=== PATIENT | male | born 1990 | race Caucasian/White ===

== ENCOUNTER 2025-05-18 12:34 | Emergency (ER) | payer BC, SELFPAY ==
[2025-05-18 12:48] VITALS: BP 146/93; PULSE 79; TEMP 36.5; O2SAT 99; BMI 34.0
--- NOTE | 2025-05-18 13:10 | CT_ITS ---
The [address] [address] Patient Name: MATILDE LYLE MRN: [id number] date: 1990 Sex: M Assigned Patient Location: ER Current Patient Location: ER Accession/Order Number: [id number] Exam Date: 05/18/2025 13:45 Report Date: 05/18/2025 14:16 At the request of: ALLISON FITZGERALD Procedure: CT abdomen pelvis w con CT ABDOMEN AND PELVIS WITH INTRAVENOUS CONTRAST: CLINICAL HISTORY: llq pain and back pain / COMPARISON: None TECHNIQUE: Spiral images were obtained through the abdomen and pelvis following the administration of intravenous contrast. This CT exam was performed using one or more following dose reduction techniques: Automated exposure control, adjustment of the mA and/or kV according to patient size, or use of iterative reconstruction technique. FINDINGS: Lung Bases: [No acute findings.] Organs:Hepatic steatosis. Gallbladder spleen pancreas adrenal glands kidneys and aorta all appear unremarkable.[ GI: Stomach is grossly unremarkable. Small bowel appears nondilated. Appendix is normal. No acute colonic abnormality.[ Pelvis:[Urinary bladder and prostate gland appear unremarkable.] Peritoneum/Retroperitoneum:No free air or free fluid or lymphadenopathy.[ Abd wall/Bones:Abdominal wall demonstrates no acute findings. Osseous structures demonstrate no acute findings.[ CT/CT abdomen pelvis w con IMPRESSION: No acute process. Hepatic steatosis. Impression dictated by: Myke Murillo Jr., D.O. 05/18/2025 2:16 PM Dictation Location: [place] [address] Electronically authenticated by: [id number] Y Date: 05/18/2025 14:16
--- NOTE | 2025-05-18 13:12 | ED.GENADUL1 ---
HPI HPI - General Adult General Chief complaint: Abdominal Pain Stated complaint: ABDOMINAL & BACK PAIN Time Seen by Provider: 05/18/25 13:02 Source: patient Mode of arrival: walk-in Limitations: no limitations History of Present Illness HPI narrative: Patient presents with 5-day history of worsening abdominal pain he indicates mid upper abdomen. Patient does have nausea. He states he goes through to his back. Food worsens his symptoms. Patient denies fever, chills, sore throat, vomiting, sore throat, cough, chest pain, urinary bleeding, rectal bleeding, coughing up blood. Patient denies any history of diverticulosis, diverticulitis. Patient states that prior to this week's episode he has had intermittent abdominal pain. Symptoms mild to moderate in severity food and palpation worsen symptoms nothing improves his symptoms. MD complaint: Abdominal pain Onset (ago): week(s) (1) Location: Reports abdomen Radiation: Reports back Relieving factors: Reports none Exacerbating factors: Reports eating Treatments prior to arrival: Reports none Related Data Home Medications ?Medication ?Instructions ?Recorded ?Confirmed esomeprazole magnesium 20 mg 20 mg PO DAILY 05/18/25 05/18/25 capsule,delayed release (Nexium 24HR) Previous Rx's ?Medication ?Instructions ?Recorded dicyclomine 10 mg capsule 10 mg PO QID PRN abdominal pain 05/18/25 #14 caps ibuprofen 600 mg tablet 600 mg PO Q8H PRN pain #14 tabs 05/18/25 ondansetron 4 mg disintegrating 4 mg PO Q8H PRN nausea and 05/18/25 tablet vomiting 4 days #14 tabs Allergies Allergy/AdvReac Type Severity Reaction Status Date / Time No Known Drug Allergies Allergy Verified 05/18/25 12:48 Opioid HPI Opioid Management Most Recent Opioid Data: Last Pain Scale 4 Today, 12:58 Review of Systems ROS Status of ROS 10 or more systems reviewed and unremarkable except as noted in history and below Constitutional Denies: fever or chills Ears, nose, mouth, and throat Denies: throat pain or ear pain Cardiovascular Denies: chest pain Respiratory Denies: shortness of breath or cough Gastrointestinal Reports: abdominal pain and nausea; Denies: vomiting or constipation Genitourinary Denies: painful urination or blood in urine Musculoskeletal Reports: back pain; Denies: neck pain Integumentary/Breast Denies: rash Neurological Reports: headache Psychiatric Denies: anxiety Endocrine Denies: excessive urination Hematologic/Lymphatic Denies: easy bruising Allergic/Immunologic Denies: hives PFSH PFSH Social History Little interest or pleasure in doing things: not at all Feeling down, depressed, or hopeless: not at all Exam Constitutional Vital Signs, click to edit/add: Last Vital Signs Temp 97.7 F 05/18/25 12:48 Pulse 79 05/18/25 12:48 Resp 16 05/18/25 12:48 BP 146/93 H 05/18/25 12:48 Pulse Ox 99 05/18/25 12:48 O2 Del Method Room Air 05/18/25 12:48 Documenting provider has reviewed patient's vital signs: yes Common normals: no apparent distress, oriented x3, healthy appearing, alert and well nourished Exam limitations: no altered mental status General appearance: cooperative Orientation/consciousness: Yes awake HENMT Common normals: normocephalic and external nose normal Head and scalp: normal to inspection Face and sinus: normal facial exam Nose: external nose normal General ear: hearing not grossly impaired External ear: external ears normal External auditory canal: EACs normal Tympanic membrane: TMs normal bilaterally Throat: posterior oropharynx normal Eye Common normals: PERRL, EOMs intact bilaterally and conjunctivae normal General eye: normal appearance of both eyes Neck & C-Spine Common normals: full ROM and supple General: normal visual inspection and trachea midline Chest Common normals: inspection of chest normal Chest: symmetrical chest wall rise; inspection of the chest normal, no localized rib tenderness with anteroposterior compression and no tenderness Respiratory Common normals: normal respiratory effort, no retractions, no use of accessory muscles and clear to auscultation bilaterally Effort & inspection: able to speak in complete sentences Cardio Common normals: regular rate, regular rhythm, S1 normal heart sound, S2 normal heart sound and peripheral pulses 2+ throughout GI Common normals: Normal to inspection, nondistended, normoactive bowel sounds present and soft to palpation; tender Auscultation: normoactive bowel sounds Palpation: soft and tender Details: LLQ; no guarding and not rigid Back & Pelvis Common normals: no CVA tenderness, thoracic and lumbar spine normal to inspection, no thoracic nor lumbar tenderness and thoraco-lumbar ROM normal General back: no CVA tenderness Extremity Common normals: full ROM and no pedal edema (Slight bilateral lower extremity edema) General: normal exam except as noted Neuro Common normals: oriented x3 and moves all extremities Psych Common normals: mental status grossly normal, thought process normal, cooperative, affect normal and speech normal Course Reevaluation(s) Reevaluation #1: Patient reevaluated 14 hours. Patient does not want any pain medicine or nausea medicine. We reviewed labs including glucose and slight elevation in ALT negative urine plan for medications for home patient has appointment with his physician on Thursday. We await CT scan Vital Signs Vital signs: Vital Signs Temperature 97.7 F 05/18/25 12:48 Pulse Rate 79 05/18/25 12:48 Respiratory Rate 16 05/18/25 12:48 Blood Pressure 146/93 H 05/18/25 12:48 Pulse Oximetry 99 05/18/25 12:48 Oxygen Delivery Method Room Air 05/18/25 12:48 Temperature 97.7 F 05/18/25 12:48 Pulse Rate 79 05/18/25 12:48 Respiratory Rate 16 05/18/25 12:48 Blood Pressure 146/93 H 05/18/25 12:48 Pulse Oximetry 99 05/18/25 12:48 Oxygen Delivery Method Room Air 05/18/25 12:48 Medical Decision Making MDM Narrative Medical decision making narrative: Patient has worsening abdominal pain back pain primarily left lower quadrant CBC CMP lipase urinalysis IV contrasted CT abdomen pelvis for possible diverticulitis. Will add 0.9% since patient did have dry oromucosa denies any diarrhea notes last bowel movement was today at noon prior to arrival denies any urinary bleeding rectally denies any history of diverticulosis diverticulitis kidney stone. Discussed plan of care with patient at length he agrees plan of care.. Discussed with patient including plan of care he is agreeable to plan of care. Negative CT for acute process we did discuss hepatic steatosis with slight elevation of LFTs he is going to follow-up with his primary care physician. Will add ibuprofen 600 every 8 hours #14 Zofran 4 mg every 8 hours as needed for nausea vomiting and Bentyl 10 mg. Sent to local pharmacy. t Differential Diagnosis Differential Diagnosis: not limited to diverticulosis diverticulitis kidney stone UTI colitis Lab Data Lab results reviewed: Yes I reviewed the patient's lab results Labs: Lab Results 10/16/25 10/16/25 Range/Units 13:10 13:18 WBC 8.6 (4.0-11.0) 10^3/uL RBC 5.11 (4.70-6.10) 10^6/uL Hgb 15.7 (14.0-18.0) g/dL Hct 44.2 (42.0-54.0) % MCV 86.5 (80.0-94.0) fL MCH 30.7 (25.9-34.0) pg MCHC 35.5 H (29.9-35.2) g/dL RDW 12.1 (11.0-15.0) % Plt Count 236 (150-450) 10^3/uL MPV 9.7 (9.5-13.5) fL Neut % (Auto) 68.3 (43.0-75.0) % Lymph % (Auto) 20.6 (20.5-60.0) % [place] % (Auto) 8.7 (1.7-12.0) % Eos % (Auto) 1.4 (0.9-7.0) % Baso % (Auto) 0.7 (0.2-2.0) % Neut # (Auto) 5.9 (1.4-6.5) 10^3/uL Lymph # (Auto) 1.8 (1.2-3.8) 10^3/uL [place] # (Auto) 0.8 (0.3-0.8) 10^3/uL Eos # (Auto) 0.1 (0.0-0.7) 10^3/uL Baso # (Auto) 0.1 (0.0-0.1) 10^3/uL Abs Immat Gran (auto) 0.03 (0.00-0.03) 10^3/uL Imm/Tot Granulo (auto) 0.3 (0.0-0.5) % Sodium 141 (136-145) mmol/L Potassium 4.1 (3.5-5.1) mmol/L Chloride 104 (98-107) mmol/L Carbon Dioxide 29.8 (21.0-32.0) mmol/L Anion Gap 11.3 BUN 13.0 (7.0-18.0) mg/dL Creatinine 1.07 (0.70-1.30) mg/dL Est GFR ( Amer) >60 (>=60 mL/min/1.73m^2) Est GFR (Non-Af Amer) >60 (>=60 mL/min/1.73m^2) BUN/Creatinine Ratio 12.1 Glucose 115 H (74-106) mg/dL Calcium 9.4 (8.5-10.1) mg/dL Magnesium 2.1 (1.8-2.4) mg/dL Total Bilirubin 0.7 (0.2-1.0) mg/dL AST 34 (15-37) U/L ALT 97 H (16-63) U/L Alkaline Phosphatase 74 (46-116) U/L Total Protein 7.9 (6.4-8.2) g/dL Albumin 4.6 (3.4-5.0) g/dL Globulin 3.3 g/dL Albumin/Globulin Ratio 1.4 Lipase 37.0 (16.0-77.0) U/L Urine Color Lt. yellow (YELLOW) Urine Clarity Clear (CLEAR) Urine pH 7.0 (5.0-9.0) Ur Specific [place] 1.010 (1.005-1.025) Urine Protein Negative (NEG/TRACE) mg/dL Urine Glucose (UA) Negative (NEGATIVE) mg/dL Urine Ketones Negative (NEGATIVE) mg/dL Urine Occult Blood Negative (NEGATIVE) Urine Nitrite Negative (NEGATIVE) Urine Bilirubin Negative (NEGATIVE) Urine Urobilinogen 0.2 (0.2-1.0) EU/dL Ur Leukocyte Esterase Negative (NEGATIVE) Discharge Plan Discharge Stand Alone Forms: Work/School Release Chief Complaint: Abdominal Pain Clinical Impression: Nausea Abdominal pain Qualifiers: Abdominal location: left lower quadrant Qualified Code(s): R10.32 - Left lower quadrant pain Back pain Qualifiers: Back pain location: low back pain Chronicity: acute Back pain laterality: unspecified Sciatica presence: unspecified whether sciatica present Qualified Code(s): M54.50 - Low back pain, unspecified Patient Disposition: Home, Self-Care Time of Disposition Decision: 14:52 Condition: Good Mode of Transportation: Private Vehicle Prescriptions / Home Meds: New ondansetron 4 mg tablet,disintegrating 4 mg PO Q8H PRN (Reason: nausea and vomiting) 4 Days Qty: 14 0RF dicyclomine 10 mg capsule 10 mg PO QID PRN (Reason: abdominal pain) Qty: 14 0RF ibuprofen 600 mg tablet 600 mg PO Q8H PRN (Reason: pain) Qty: 14 0RF No Action esomeprazole magnesium [Nexium 24HR] 20 mg capsule,delayed release(DR/EC) 20 mg PO DAILY Print Language: Croatian Instructions: Acute Nausea and Vomiting (DC), Abdominal Pain (ED) Additional Instructions: Clear liquid diet for 24 hours including water, Jell-O, popsicles, clear broth, Gatorade. Follow-up with primary care. Return to ER if any symptoms worsen or new symptom develop. Referrals: [facility] [Other] - As needed MEME ALBA DO [Primary Care Provider, Family Practice] - 1 week
--- OUTSIDE RECORDS SUMMARY | 2025-05-18 13:12 | XMS_ITS | Clinical Summary ---
Author Organization [facility] tem Address [id number] [place] [address] Care Team Providers Care Ui Application Developer Name Role Phone Unavailable Primary Care Provider Unavailabl e Social History Tobacco Use Types Packs/Day Years Used Date Smoking Tobacco: Never Assessed Childcare Answer Date Recorded Childcare Unknown 01/12/2019 Employment Answer Date Recorded Employment Unknown 01/12/2019 Sex and Gender Information Value Date Recorded Sex Assigned at Not on file Legal Sex Male 11:40 AM EDT Gender Identity Not on file Sexual Orientation Not on file Plan of Treatment Not on file Medical Devices Not on file
[2025-05-18 13:29] LABS: Hematocrit 44.2 % (42.0-54.0); Hemoglobin 15.7 g/dL (14.0-18.0); Immature Granulocytes Abs Auto 0.03 10^3/uL (0.00-0.03); Immature Granulocytes Pct Auto 0.3 % (0.0-0.5); Lymphocytes Absolute Auto 1.8 10^3/uL (1.2-3.8); Mean Corpuscular HGB Conc 35.5 g/dL (29.9-35.2); Mean Corpuscular Hemoglobin 30.7 pg (25.9-34.0); Mean Corpuscular Volume 86.5 fL (80.0-94.0); Platelet Count 236 10^3/uL (150-450); Red Blood Count 5.11 10^6/uL (4.70-6.10); White Blood Count 8.6 10^3/uL (4.0-11.0)
[2025-05-18 13:46] LABS: Alanine Aminotransferase 97 U/L (16-63); Albumin Globulin Ratio 1.4; Albumin Level 4.6 g/dL (3.4-5.0); Alkaline Phosphatase 74 U/L (46-116); Anion Gap 11.3; Aspartate Amino Transferase 34 U/L (15-37); Blood Urea Nitrogen 13.0 mg/dL (7.0-18.0); Calcium 9.4 mg/dL (8.5-10.1); Carbon Dioxide 29.8 mmol/L (21.0-32.0); Chloride 104 mmol/L (98-107); Estimated GFR (African America >60 (>=60 mL/min/1.73m^2); Estimated GFR (Non-African Ame >60 (>=60 mL/min/1.73m^2); Globulin 3.3 g/dL; Glucose 115 mg/dL (74-106); Lipase 37.0 U/L (16.0-77.0); Magnesium 2.1 mg/dL (1.8-2.4); Potassium 4.1 mmol/L (3.5-5.1); Sodium 141 mmol/L (136-145); Total Protein 7.9 g/dL (6.4-8.2)
[2025-05-18] MEDS: 0.9 % SODIUM CHLORIDE 500 ML 1000 ML IV (13:53)
[2025-05-18 14:00] LABS: Glucose Urine UA NEGATIVE (NEGATIVE)
== END 2025-05-18 15:03 | disposition home or self-care (01) ==
PROVIDERS: Physician Assistant; Emergency Provider Emergency Medicine; PCP Internal Medicine
DX: R10.32 Left lower quadrant pain (principal); R11.0 Nausea; M54.50 Low back pain, unspecified
CPT/HCPCS: 36415; 74177; 80053; 81003; 83690; 83735; 85025; 99285; Q9967